=== PATIENT | female | born 1940 | race Caucasian/White ===

== ENCOUNTER → 2016-10-17 | Outpatient (CLI) | payer MEDICARE, OTHER ==
[~2016-10-17] MED LIST: ALDACTONE25 MG PO; ASPIRIN EC81 MG PO; B COMPLEX1 EACH PO; BRILINTA90 MG PO; CALCIUM 600 +1 EAC2 PO; CLINDAMYCIN HC300 MG PO; COLACE100 MG PO; COREG 3.1253.125 MG PO; DELTASONE20 MG PO; DULERA 200 MCG/51 EA INH; FLORASTOR250 MG PO; HUMIBID LA (MU600 MG PO; KLONOPIN0.5 MG PO; LASIX20 MG PO; LEVAQUIN 750 M750 MG PO; LEXAPRO20 MG PO; LIPITOR40 MG PO; LIVALO2 MG PO; OXYGEN M-15 INH; PAXIL20 MG PO; PLAVIX75 MG PO; PROAIR HFA8.5 GM INH; PROLIA60 MG/ML SUB-Q; SPIRIVA18 MCG INH; SYMBICORT 160/41 KIT INH; TOPROL XL25 MG PO; TYLENOL EXTRA500 MG PO; VASOTEC2.5 MG PO
--- NOTE | ~2016-10-17 | PUL ---
PATIENT'S NAME: [facility] AGE: 76 Y [address] 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 FVC was 2.63 liters which is 83% of predicted and normal, FEV1 was 1.08 liters which is 45% of predicted and low, and FEV1/FVC was 41% and low. The flow volume curve revealed significant airflow limitation. After bronchodilator administration FVC decreased to 2.6 liters and FEV1 decreased to 1.06 liters. FEV1/FVC was 41%. 2. DLCO was 4.7 with an adjusted DLCO of 5 which is 34% of predicted and low. 3. Total lung capacity was 5.59 liters which is 104% of predicted and normal, and residual volume was 2.96 liters which is 133% of predicted and high. PHYSICIAN INTERPRETATION: The patient has severe airflow limitation without a significant bronchodilator response. Her diffusion capacity is severely low. There is evidence of air trapping on the lung volumes. ANGLE LOZANO MD RFMarjorie/ks /[id number] dtt: 10/19/16 0943 , ANGLE LOZANO dtd: 10/19/16 0737
--- NOTE | ~2016-10-17 | PUL ---
PATIENT'S NAME: ALLEY SULLIVAN [facility] AGE: 76 Y [address] 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 The patient walked for 550 feet at a pace of 1.04 miles/hour. Her oxygen saturation was 92% at the beginning of the test, then dropped to 89% during the test, and was 86% after the test. She had appropriate increases in her heart rate and her blood pressure remained stable, although relatively low. She had one period of rest. Her perceived dyspnea was 7/10 on the [place]ell scale. REFERRING PHYSICIAN: The patient has moderate limitation in her exercise capacity with significant desaturation and hypoxia during exercise while on room air. MD JOELLE DUARTE/ciara /[id number] dtt: 10/19/16 0945 , ANGLE LOZANO dtd: 10/19/16 0739
== END | disposition disaster alternative care site (69) ==
LOC: GRTH 12:44
DX: J44.9 Chronic obstructive pulmonary disease, unspecified (principal); R09.02 Hypoxemia

== ENCOUNTER → 2016-10-24 | Outpatient (CLI) | payer MEDICARE, OTHER | END | disposition disaster alternative care site (69) | LOC: GRAD 13:54 | DX: R91.1 Solitary pulmonary nodule (principal); J43.9 Emphysema, unspecified ==

== ENCOUNTER 2017-01-01 14:27 | Emergency (ER) | payer MEDICARE, OTHER ==
--- NOTE | ~2017-01-01 | ER ---
PATIENT'S NAME: ALLEY SULLIVAN [facility] AGE: 76 Y [address] ROOM: [place] [address] LOCATION: [facility] ADMIT DATE: 01/01/2017 ER/Outpatient Report DISCHARGE DATE: 01/01/2017 FAMILY PHYSICIAN: Isabel Rooney MD ATTENDING PHYSICIAN: Andrew Epstein Time of Arrival: 1438 hours. Time of Evaluation: 1438 hours. CHIEF COMPLAINT: Left forearm laceration. HISTORY OF PRESENT ILLNESS: The patient states she was getting ready to give her dog a bath when she bumped her left lower forearm on her stair railing and received a skin tear. Denies any numbness or tingling. She has not had increase in pain. Denies any other injury with the incident. ALLERGIES: ON HER CHART AND WERE REVIEWED BY ME. CURRENT MEDICATIONS: On her chart and were reviewed by me. PAST MEDICAL HISTORY: Includes recent [place], pneumonia, T8 compression fracture, COPD. SOCIAL HISTORY: She denies use of tobacco, drugs, or alcohol. Does wear oxygen at 2 L all the time at home. Dr. Isabel Rooney is her primary provider. She states her tetanus is up-to-date. REVIEW OF SYSTEMS: All negative other than those mentioned in the HPI. PHYSICAL EXAMINATION: VITAL SIGNS: She weighs 43.8 kg, blood pressure is 120/77, pulse of 96, respirations 18, temperature of 97.6 tympanic, O2 saturations 97% on room air. GENERAL: She is awake, alert, and oriented x4. SKIN: [place], warm, and dry. RESPIRATIONS: Even and nonlabored. Lung sounds are clear throughout. HEART: Regular rate and rhythm. EMERGENCY DEPARTMENT COURSE: The patient has approximately 3 cm skin tear to the lateral forearm area. It PATIENT'S NAME: ALLEY SULLIVAN [facility] AGE: 76 Y [address] ROOM: [place] [address] LOCATION: [facility] ADMIT DATE: 01/01/2017 ER/Outpatient Report DISCHARGE DATE: 01/01/2017 FAMILY PHYSICIAN: Isabel Rooney MD ATTENDING PHYSICIAN: Andrew Epstein was cleansed well with saline. Dried and Dermabond used to help approximate the edges together. The patient tolerated the procedure well. Bleeding was well controlled with the Dermabond. IMPRESSION: Skin tear. PLAN: Dressing was applied. The patient is to leave it on for at least 24 hours. Change it as needed. Follow up with her primary provider in the next 2 or 3 days as needed or return to the ER. She verbalized understanding. GRACIELA BAILEY APRN FOR DO KAVON AMADOR/marvin /[id number] d: 01/01/172010 t: 01/05/17 0739, OUTPATIENT REPORT
[~2017-01-01 14:27] MED LIST changes: -LIVALO2 MG PO; -OXYGEN M-15 INH; -PAXIL20 MG PO; -PLAVIX75 MG PO; -SYMBICORT 160/41 KIT INH
== END 2017-01-01 14:56 | disposition disaster alternative care site (69) ==
LOC: GACC 14:27
PROC: 0HQEXZZ Repair Left Lower Arm Skin, External Approach (ICD-10-PCS; principal; 2017-01-01)
DX: S51.812A Laceration without foreign body of left forearm, initial encounter (principal); I25.2 Old myocardial infarction; J44.9 Chronic obstructive pulmonary disease, unspecified; Z88.1 Allergy status to other antibiotic agents; Z87.81 Personal history of (healed) traumatic fracture; Z88.2 Allergy status to sulfonamides; Z88.0 Allergy status to penicillin; Z87.01 Personal history of pneumonia (recurrent); Z88.8 Allergy status to other drugs, medicaments and biological substances; W22.8XXA Striking against or struck by other objects, initial encounter

== ENCOUNTER → 2017-02-20 | Outpatient (CLI) | payer MEDICARE, OTHER ==
[~2017-02-20] MED LIST changes: +LIVALO2 MG PO; +OXYGEN M-15 INH; +PAXIL20 MG PO; +PLAVIX75 MG PO; +SYMBICORT 160/41 KIT INH
[2017-02-20 17:09] LABS: ANION GAP 11.3 (10.0-19.0); CALCIUM 9.2 mg/dL (8.5-10.5); CREATININE 0.8 mg/dL (0.5-1.1); POTASSIUM 4.3 mMol/L (3.7-5.1); TOTAL BILIRUBIN 0.5 mg/dL (0.0-1.5); TOTAL PROTEIN 7.2 g/dL (6.0-8.4)
== END ==
LOC: LNHI 16:40
PROVIDERS: Internal Medicine Interventional Cardiology
DX: E78.5 Hyperlipidemia, unspecified (principal); I50.23 Acute on chronic systolic (congestive) heart failure; I42.8 Other cardiomyopathies

== ENCOUNTER 2017-02-25 19:21 | Inpatient (IN) | payer MEDICARE, OTHER ==
[~2017-02-25] VITALS: Ht 170.2 cm; Wt 44.0 kg
--- NOTE | ~2017-02-25 | DS ---
PATIENT'S NAME: ALLEY SULLIVAN [facility] AGE: 76 Y [address] ROOM: [address] [address] LOCATION: [facility] ADMIT DATE: 02/25/2017 Discharge Summary DISCHARGE DATE: 03/01/2017 FAMILY PHYSICIAN: Isabel Rooney MD ATTENDING PHYSICIAN: Maciel Uriostegui FINAL DIAGNOSES: 1. Partial small bowel obstruction. 2. Underweight. 3. Chronic obstructive pulmonary disease. 4. Coronary artery disease. 5. Paroxysmal atrial fibrillation. Please see the history and physical dictated by Dr. Uriostegui for details of admission. In short, the patient was admitted through the emergency room after she presented with epigastric pain and nausea. CT scan and x-ray showed some increased small bowel fluid, which is suspicious for partial obstruction. LABORATORY DATA: On admit, sodium 134, potassium 4.2, chloride 98, CO2 31, BUN 16, and creatinine 0.7. Magnesium was 2.6. Cardiac enzymes were negative. Sodium on the second hospital day was 139, BUN 13, creatinine 0.9. White blood cell count on admission was 10.9, hemoglobin 12.4, hematocrit 35.4, and platelet count 217. Her coagulation studies were all normal. Procalcitonin on admission was less than 0.05. On admission supine and upright x-ray of the abdomen was suggestive of partial small bowel obstruction. Followup CT scan did confirm this as well. X-ray on the second hospital day did not show any free air and the 30th x-ray did show resolving partial small bowel obstruction. HOSPITAL COURSE: The patient was admitted to the hospital, NG was placed, and she was placed on aggressive IV hydration. She was covered empirically with IV Protonix and was given IV antibiotics. She had gotten a dose of IV antibiotics in the ER. An NG was placed in place to low intermittent suction. She was monitored, and she did not pass any flatus or bowel movement. We did give her Dulcolax to try and do this. When she did start passing flatus, her NG was clamped, and we were able to remove that. We started her on a clear liquid, advanced her diet slowly, and on the date of discharge, she was able to tolerate a surgical soft diet. It was felt that she was stable for discharge to home. Her diet and activity as tolerated. I did talk with her about eating, limiting her raw vegetables and fresh fruits, and to follow up with Dr. Rooney in 3-5 days. MEDICATIONS: 1. Tylenol 1000 mg every 6 hours as needed. 2. Klonopin 0.5 mg twice daily. PATIENT'S NAME: ALLEY SULLIVAN [facility] AGE: 76 Y [address] ROOM: [place] [address] LOCATION: [facility] ADMIT DATE: 02/25/2017 Discharge Summary DISCHARGE DATE: 03/01/2017 FAMILY PHYSICIAN: Isabel Rooney MD ATTENDING PHYSICIAN: Maciel Uriostegui 3. Lexapro 20 mg daily. 4. ProAir HFA 2 puffs every 4 hours as needed. 5. Vitamin B complex 1 daily. 6. Prolia 60 mg subcutaneously. 7. Calcium with D daily. 8. Aspirin 81 mg daily. 9. Florastor 250 mg twice daily. Klonopin 1 mg daily. 10. Plavix 75 mg daily. 11. Livalo 2 mg daily. 12. Paxil 60 mg at bedtime. 13. Symbicort 160/4.5 two puffs twice daily. OVERALL PROGNOSIS: At discharge was good. The patient did voice understanding. BRITTNEY POLO MD LAW/modl /[id number] CC: Isabel Rooney MD d: 03/02/17 0221 t: 03/11/17 1426, DISCHARGE SUMMARY
--- NOTE | ~2017-02-25 | ER ---
PATIENT'S NAME: GIGI SULLIVANANCE Deyvi [facility] AGE: 76 Y [address] ROOM: [place] [address] LOCATION: [facility] ADMIT DATE: 02/25/2017 ER/Outpatient Report DISCHARGE DATE: FAMILY PHYSICIAN: Isabel Rooney MD ATTENDING PHYSICIAN: RONDA RAMSAY Admission date and time documented on the medical record. I saw the patient at 1930 hours. CHIEF COMPLAINT: Mid low abdominal pain, radiating around to her back along with some chest discomfort. HISTORY OF PRESENT ILLNESS: The patient is a 76-year-old female, who developed some mid low abdominal pain across her abdomen, radiating around to her back around 1300 hours this afternoon. The pain comes and goes. Sharp stabbing in nature when it is present. Some nausea, but no vomiting. No diarrhea. The patient does have an ileal conduit for her urinary tract. She had a cystectomy because of bladder cancer. Some shortness of breath along with the chest discomfort. No radiation of the pain. No headache, eyes, ears, nose, throat, neck, or spine pain. No fall or trauma. No recent coughs, colds, flus, fever, chills, or sweats. No lightheadedness, dizziness, syncope, or near syncope. No joint or muscle swelling, redness, or pain. No skin eruptions or rash. No endocrine problems, neuro changes, or psych issues. HOME MEDICATIONS: See attached medication list. ALLERGIES: PENICILLIN, MACROLIDES, SULFA. SOCIAL HISTORY: Nonsmoker. Occasional intake of alcohol. SIGNIFICANT PAST MEDICAL HISTORY: Atherosclerotic ischemic heart disease; coronary artery disease, status post myocardial infarction; COPD, O2 dependent; diverticulosis; colon polyps; pneumonia; T8 compression fracture; brain bleed; subarachnoid hemorrhage; bladder cancer; degenerative joint disease; degenerative osteoarthritis; remote tobacco abuse. OPERATIONS: Carpal tunnel release, appendectomy, hysterectomy, left total hip arthroplasty, cystoscopy, ileal conduit placement, cystectomy, thyroidectomy, PATIENT'S NAME: ALLEY SULLIVAN [facility] AGE: 76 Y [address] ROOM: [place] [address] LOCATION: [facility] ADMIT DATE: 02/25/2017 ER/Outpatient Report DISCHARGE DATE: FAMILY PHYSICIAN: Isabel Rooney MD ATTENDING PHYSICIAN: RONDA RAMSAY colonoscopy with polypectomy, cardiac catheterization with PTCA and stenting. REVIEW OF SYSTEMS: All systems reviewed by me are negative with the exception of those discussed in the history of present illness. PHYSICAL EXAMINATION: VITAL SIGNS: Temperature 96.3 tympanic, pulse 100, respirations 18, blood pressure 147/87, O2 saturation on 3 L oxygen per nasal cannula is 100%. HEENT: Head: Normocephalic. Eyes: Clear. Ears: Clear TMs bilaterally. Nose And Throat: Clear. Mucous membranes moist. NECK: No nuchal rigidity. No thyromegaly or cervical adenopathy. SPINE: Negative. LUNGS: Decreased breath sounds diffusely. No rales, rhonchi, or wheezes. HEART: Regular. Pulses are palpable. No chest wall or ribcage pain to palpation. ABDOMEN: Soft. Some tenderness in the mid abdomen. On my exam, she had no distention, guarding, or rigidity. No rebound tenderness. Bowel tones were present. No organomegaly or abnormal mass palpable. No CVA tenderness. EXTREMITIES: Without peripheral edema, cyanosis, or deformity. NEUROVASCULAR: Intact. SKIN: Clear. No skin eruptions or rash. LABORATORY DATA AND X-RAYS: EKG showed sinus rhythm. Old anterior changes. No acute ST elevation. No arrhythmia. Three abdominal x-ray showed no perforation, lung infiltrate. She does have multiple air-fluid levels suggestive of small bowel obstruction. Laboratory: Lactate was 0.6, procalcitonin was less than 0.05. White count was 10,900, 78 segs, 12 lymphs, 10 monos, 1 eo, hemoglobin was 12.4, hematocrit 35.4, platelet count was 217,000. PTT was 25, pro-time was 10.1 with an INR 0.96. CMS was normal except for a slight low sodium 134, low anion gap of 9.2, magnesium was 2.6. CPK was 111. [id number] cardiac enzymes were normal. CRP was less than 0.29. ProBNP was elevated 616. I did get a CT scan of the abdomen and pelvis with IV contrast that showed partial small-bowel obstruction, as read by Radiology, see dictated transcribed report. EMERGENCY DEPARTMENT COURSE: I did start the patient on IV normal saline, fluids. Gave her morphine for pain. Zofran for nausea. PATIENT'S NAME: [facility] AGE: 76 Y [address] ROOM: [address] [address] LOCATION: [facility] ADMIT DATE: 02/25/2017 ER/Outpatient Report DISCHARGE DATE: FAMILY PHYSICIAN: Isabel Rooney MD ATTENDING PHYSICIAN: RONDA RAMSAY IMPRESSION: 1. Abdominal pain secondary to partial small bowel obstruction. 2. Atherosclerotic ischemic heart disease with coronary artery disease, status post myocardial infarction. 3. O2-dependent chronic obstructive pulmonary disease. 4. History of bladder cancer. 5. Remote tobacco abuse. 6. Degenerative osteoarthritis with degenerative joint disease. 7. History of diverticulosis. 8. History of colon polyps. PLAN: I did discuss this patient with Dr. Ramsay, hospitalist. We will admit the patient to [facility] for further evaluation. We switched her IV from normal saline to D5 normal saline at [address] Ramsay wanted an NG tube placed to low intermittent suction. The patient will be admitted to [facility] for further evaluation and treatment. Discussion ensued with the patient concerning my findings and recommendations, she understands. MD REECE CANNON/modl /[id number] d: 02/26/17 0442 t: 02/26/17 1820, OUTPATIENT REPORT
--- NOTE | ~2017-02-25 | HP ---
PATIENT'S NAME: ALLEY SULLIVAN [facility] AGE: 76 Y [address] ROOM: [place] [address] LOCATION: [facility] ADMIT DATE: 02/25/2017 History & Physical DISCHARGE DATE: FAMILY PHYSICIAN: Isabel Rooney MD ATTENDING PHYSICIAN: RONDA RAMSAY DATE OF SERVICE: CHIEF COMPLAINT: Abdominal pain. HISTORY OF PRESENT ILLNESS: This is a 76-year-old female who says that today about 1 p.m., she felt this epigastric pain that she said it felt like a stabbing type of pain on and off for few minutes and also felt nauseous with radiation to the back. Her last bowel movement was this morning and it was normal. Last time she ate a meal was the breakfast, she skipped lunch and she has not eaten anything since then. She still passes flatus. Last time she passed flatus was earlier today. She has never had a small bowel obstruction before, but she does have urostomy bag placed a few years ago. She denies any chest pain or shortness of breath or any other symptoms. She denies any fever or chills. REVIEW OF SYSTEMS: As mentioned in the history of present illness. All other systems were reviewed and that were negative except those mentioned in history of present illness. PAST MEDICAL HISTORY: 1. History of coronary artery disease status post stents placed in the past. 2. COPD. 3. Paroxysmal atrial fibrillation. 4. Bladder cancer status post chemotherapy and surgery in the past and currently has the urostomy bag. ALLERGIES: PENICILLIN (RASH), MACROLIDE AND SULFA ALSO HIVES. HOME MEDICATIONS: Currently has been reconciled. SOCIAL HISTORY: The patient was a former cigarette smoker. She quit about 3-4 years ago. She was a smoker about 2 packs per day for 20 years. She drinks alcohol socially, but she denies any alcohol use disorder. She denies any illegal drug use. PATIENT'S NAME: ALLEY SULLIVAN [facility] AGE: 76 Y [address] ROOM: [place] [address] LOCATION: [facility] ADMIT DATE: 02/25/2017 History & Physical DISCHARGE DATE: FAMILY PHYSICIAN: Isabel Rooney MD ATTENDING PHYSICIAN: RONDA RAMSAY PAST SURGICAL HISTORY: 1. Ileal conduit for history of bladder cancer. 2. Left hip surgery. 3. Hysterectomy. 4. Appendectomy. 5. Carpal tunnel syndrome. 6. Thyroidectomy. 7. Cardiac stents placed in the past. FAMILY HISTORY: Father from lung cancer from heavy smoking at old age. Mother also from lung cancer and also from heavy smoking at old age. PHYSICAL EXAMINATION: VITAL SIGNS: At the time of evaluation; temperature 97.6, heart rate 90, respirations 20, blood pressure 105/63, saturation 97% on 2 L nasal cannula. GENERAL APPEARANCE: Alert and oriented x3. Currently, in no acute distress. HEENT: Pupils equally round and reactive to light. Extraocular muscles intact. Anicteric sclerae. Nasal turbinates normal bilaterally. Moist oral mucosa. NECK: No JVD. CARDIOVASCULAR: Regular rate and rhythm. No murmur. No rubs. No gallops. Normal S1, S2. RESPIRATORY: Clear. No rales. No rhonchi. No wheezing. No crackles. ABDOMEN: Soft, nondistended, currently nontender, bowel sounds present, no mass. EXTREMITIES: No edema in upper or lower extremities. SKIN: No ulcer, no rash, no cyanosis. NEURO: Grossly nonfocal. LABORATORY DATA: Lactic acid 0.6. Troponin is less than 0.04. CPK 111. ProBNP 616. White blood cell 10.8, hemoglobin 12.4, hematocrit 35.4, platelet 217, glucose 93, BUN 16, creatinine 0.7. Sodium 134, potassium 4.2, chloride 98, CO2 31, calcium 9.4. Total protein 7.0, albumin 4.0, AST 22, ALT 26, alkaline phosphatase 36. Total bilirubin 0.4, magnesium 2.6, anion gap 9.2. INR 0.96, PTT 25. GFR 85, CK-MB 3.7, CRP less than 0.29, procalcitonin less than 0.05, amylase 44, lipase 140. IMAGING STUDIES: CT scan of abdomen and pelvis with contrast based on the telephone report given to me by the ER physician, Dr. Bojorquez. He told me that the preliminary report was read as increased small bowel fluid dilatation in the pelvis suspect partial obstruction. History of a cystectomy without hydronephrosis. This is a preliminary report. PATIENT'S NAME: GIGI SULLIVANANCE [facility] AGE: 76 Y [address] ROOM: [id number] [place], [place] [address] LOCATION: [facility] ADMIT DATE: 02/25/2017 History & Physical DISCHARGE DATE: FAMILY PHYSICIAN: Isabel Rooney MD ATTENDING PHYSICIAN: RONDA RAMSAY KUB was done in the ED, official report is pending. Please follow up in the morning. ASSESSMENT AND PLAN: 1. Regarding her abdominal pain secondary to possible partial small bowel obstruction. Follow up with official report of the CT scan of abdomen and pelvis in the morning for final diagnosis. For now, I will treat her for partial small bowel obstruction with n.p.o., IV fluids, and also NG tube to intermittent suctioning. We will get a KUB to confirm the placement of NG tube. Further plan will depend on clinical course. IV morphine p.r.n. for pain control. IV Zofran p.r.n. for nausea and vomiting. 2. Regarding her history of coronary artery disease status post stents in the past. Currently, no active issue. EKG no acute ischemia. Enzyme negative. I will cycle 2 more sets given that location is epigastric and she has a strong cardiac history in the past. Further plan will depend on clinical course. Home medication will be addressed once these are reconciled. 3. Regarding her chronic obstructive pulmonary disease. Currently in no acute distress. Not in flare. Continue home oxygen. Titrate for saturation more than 88%. Continue all the nebulization that she takes at home. They will be addressed once the medication is reconciled. 4. Regarding history of bladder cancer status post chemotherapy and surgery and currently status post ileal conduit with urostomy bag. No active issues. 5. Regarding her anxiety disorder. Continue IV Ativan around the clock and also p.r.n. dose. 6. Depression. Not suicidal. Given that she is n.p.o., I will hold the antidepressant for now. 7. She will be on compression devices for DVT prophylaxis given that if she require surgery in the future. 8. DNR/DNI. Time spent in care on the day of admission 40 minutes where 10 minutes spent on chart review and the remainder of the time spent on interview and physical examination and also on counseling. The counseling includes going over plan care with the patient and addressing all the questions and concerns to her satisfaction. I also went over the plan of care with the nurse. Further plan will depend on clinical course. RONDA RAMSAY MD PATIENT'S NAME: ALLEY SULLIVAN [facility] AGE: 76 Y [address] ROOM: [place] [address] LOCATION: [facility] ADMIT DATE: 02/25/2017 History & Physical DISCHARGE DATE: FAMILY PHYSICIAN: Isabel Rooney MD ATTENDING PHYSICIAN: RONDA RAMSAY/marvin /[id number] D: [id number] T: [id number] HISTORY & PHYSICAL
[~2017-02-25 19:21] MED LIST changes: -LIVALO2 MG PO; -OXYGEN M-15 INH; -PAXIL20 MG PO; -PLAVIX75 MG PO; -SYMBICORT 160/41 KIT INH
[2017-02-25 20:00] LABS: BASOPHIL % 0.2 %; EOSINOPHIL # 0.1 K/uL (0.0-0.5); EOSINOPHIL % 0.6 %; HEMATOCRIT 35.4 % (33.0-46.0); HEMOGLOBIN 12.4 g/dL (10.0-15.0); IMMATURE GRANULOCYTE % 0.3 %; LYMPHOCYTE # 1.3 K/uL (0.8-4.0); LYMPHOCYTE % 11.8 %; MCH 31.7 pg (27.0-34.0); MCV 90.5 fl (83.0-98.0); MONOCYTE % 9.5 %; MPV 9.8 fl (9.4-12.4); NEUTROPHIL # (ANC) 8.5 K/uL (1.8-7.8); NEUTROPHIL % 77.6 %; NRBC % 0 /100WBC (0-0.00); PLATELET COUNT 217 K/uL (150-450); RBC 3.91 M/uL (3.50-5.50); RDW-CV 12.3 % (11.9-14.6); WBC 10.9 K/uL (4.0-11.0)
[2017-02-25 20:08] LABS: INR - (THERAPEUTIC) 0.96 (0.92-1.07); PROTIME 10.1 SECONDS (9.8-11.4); PTT 25 SECONDS (25-32)
[2017-02-25 20:20] LABS: ALK PHOS 36 IU/L (33-138); ALT 26 IU/L (12-78); ANION GAP 9.2 (10.0-19.0); AST 22 IU/L (10-40); BLOOD UREA NITROGEN 16 mg/dL (6-24); CALCIUM 9.4 mg/dL (8.5-10.5); CHLORIDE 98 mMol/L (96-110); CO2 31 mMol/L (22-32); CPK 111 IU/L (21-215); CREATININE 0.7 mg/dL (0.5-1.1); MAGNESIUM 2.6 mg/dL (1.8-2.6); POTASSIUM 4.2 mMol/L (3.7-5.1); SODIUM 134 mMol/L (135-145); TOTAL BILIRUBIN 0.4 mg/dL (0.0-1.5)
[2017-02-25] MEDS ORDERED: KLONOPIN0.5 MG PO (22:32)
[2017-02-25] MEDS ORDERED: PLAVIX75 MG PO (22:37)
[2017-02-25] MEDS ORDERED: LIVALO2 MG PO (22:38)
[2017-02-25] MEDS ORDERED: OXYGEN M-15 INH (22:38)
[2017-02-25] MEDS ORDERED: PAXIL20 MG PO (22:40)
[2017-02-25] MEDS ORDERED: SYMBICORT 160/41 KIT INH (22:41)
[2017-02-26 02:44] LABS: CPK 94 IU/L (21-215)
--- NOTE | 2017-02-26 05:11 | NUR ---
76 year old female admitted to floor at 2205 with partial small bowel obstruction with abdominal pain that sometimes radiates to her chest and back. Hx. includes NH, COPD, CA, urostomy. See part 1 of admission. Wears 3L of O2 at home. Pt. was here in July for Pneumonia and NH. CA of thyroid. NG placed in L) nare with clear output. Has urostomy that is draining clear, yellow urine. Last BM 02/25/17. 1 assist. Pneumatics on. IV in R) forearm with D5W at 60ml. NPO with ice chips. Morphine given x1 for pain with relief noted. Slept on and off. Troponin to be drawn at 0800 and to call if not normal. Cooperative and pleasant with cares.
[2017-02-26 08:29] LABS: ANION GAP 7.3 (10.0-19.0); BLOOD UREA NITROGEN 13 mg/dL (6-24); CALCIUM 8.6 mg/dL (8.5-10.5); CHLORIDE 103 mMol/L (96-110); CO2 33 mMol/L (22-32); CPK 86 IU/L (21-215); CREATININE 0.9 mg/dL (0.5-1.1); MAGNESIUM 2.4 mg/dL (1.8-2.6); PHOSPHORUS 3.9 mg/dL (2.5-4.9); POTASSIUM 4.3 mMol/L (3.7-5.1); SODIUM 139 mMol/L (135-145)
--- NOTE | 2017-02-26 16:52 | NUR ---
Significant Event: Alert and oriented X 3. O2 at 3 L by nasal cannula at all times, this is her home usage. SBP 120's. HR 70's. NG tube to left nare with 150 ml clear liquid out this shift. Urostomy with 550 ml out this shift. Peripheral IV to right forearm with fluids running at 60 ml/hr. NPO with ice chips and hard candies. No complaints of pain. Up with 1 assist and gait belt. Pleasant and cooperative with cares. Follow up:
--- NOTE | 2017-02-27 03:45 | NUR ---
Pt. alert and oriented. VSS. O2 - 3L. NG to L) nare with 150ml output. NPO with ice chips and hard candy permitted. Urostomy draining yellow urine with 550ml output. IV in R) forearm with fluids running. Refusing pneumatics. 1 assist to BR. Slept througout shift. Cooperative and pleasant with cares.
--- NOTE | 2017-02-27 13:20 | NUR ---
Introduced self and care management services to patient. Lives in [place] by herself, has a big dog at home. She plans on going home on discharge, asked her who will help her at home and she says she has a lady come in to vacuum and help with things once a week and has neighbors who will help and daughters who are helpful as well. [employer] will follow and assist with dc planning as needs evolve.
--- NOTE | 2017-02-27 16:56 | NUR ---
Significant Event:Is A/O.IV in Rt.forearm.Has ileo conduit drning yellow urine.Is passing flatus.No stools yet today.Amb in carbone with 1 assist,does well.Has O2 on at 3L/NC,she wears this all the time at home.NG tube was dc'd at 1625.Can start cl.liqs tomorrow.No c/o pain.No N/V. Follow up:
--- NOTE | 2017-02-27 19:01 | NUR ---
DULCOLAX SUPPOSITORY WAS GIVEN AT 1830.
--- NOTE | 2017-02-28 05:13 | NUR ---
Pt. alert and oriented. VSS. 3L of O2 continous. Urostomy - yellow with mucous threads. Clear liquid diet starting this AM. IV In R) forearm with fluids. Refusing pneumatics. SBA to BR. Tylenol given at HS for headache for relief. Cooperative and pleasant with cares.
--- NOTE | 2017-02-28 15:26 | NUR ---
Significant Event:Is A/O.IV in LT.arm.Is now on full liq,cassandra.well.No pain.No N/V.O2 on at 3L/NC.Cheeks are really reddened where O2 goes.States she wears O2 at home & it doesnt do that.Some padding put on tubing that goes across cheeks to see if that will help.States does not hurt or itch.Benadryl was ordered po & given.Has been up in chair & amb in halls.Prob.home tomorrow. Follow up:
--- NOTE | 2017-03-01 03:16 | NUR ---
Patient is alert and oriented, VSS, on 3L O2, home dose. She has an ileoconduit, had one episode of incontinence due to the valve not being shut. IV to R) forearm infusing. Full liquid diet, wants to be a regular diet and go home in the AM. Was disappointed that she was not a regular diet last night for supper. Plan for dismissal today.
--- NOTE | 2017-03-01 13:00 | NUR ---
DISCHARGE: Pt. was explained discharge instructions, heart disease in women, fall prevention, no new medications. Educated on small bowel obstruction. Verbalized understanding of teaching, no questions or concerns. IV removed already. Left with all belongings. Taken by wheelchair to front door by aide and driven home by daughter.
== END 2017-03-01 13:08 | disposition disaster alternative care site (69) | DRG 389 ==
LOC: GMED 19:21 → GMSU 21:38
PROVIDERS: Emergency Medicine; ADMIT Internal Medicine
DX: K56.69 Other intestinal obstruction (principal); E44.1 Mild protein-calorie malnutrition; J96.10 Chronic respiratory failure, unspecified whether with hypoxia or hypercapnia; Z99.81 Dependence on supplemental oxygen; Z68.1 Body mass index [BMI] 19.9 or less, adult; I48.0 Paroxysmal atrial fibrillation; I25.10 Atherosclerotic heart disease of native coronary artery without angina pectoris; Z79.01 Long term (current) use of anticoagulants; Z85.51 Personal history of malignant neoplasm of bladder; Z92.21 Personal history of antineoplastic chemotherapy; Z87.891 Personal history of nicotine dependence; J44.9 Chronic obstructive pulmonary disease, unspecified; F41.9 Anxiety disorder, unspecified; F32.9 Major depressive disorder, single episode, unspecified; Z66 Do not resuscitate; M81.0 Age-related osteoporosis without current pathological fracture; Z93.6 Other artificial openings of urinary tract status
CPT/HCPCS: C9113; J2060; J2270; J2405; J2920; J7030; J7042; Q9967